=== PATIENT | female | born 1950 | race Caucasian/White ===

== ENCOUNTER → 2020-07-05 | Outpatient (REF) | payer MEDICARE | LOC: M LAB REF 17:06 | PROVIDERS: ATTEND Physician Assistant | DX: L28.1 Prurigo nodularis (principal); L28.0 Lichen simplex chronicus | CPT/HCPCS: 11103; 11104; 11105; 88305; G0463 ==

== ENCOUNTER → 2020-09-18 | Outpatient (REF) | payer MEDICARE | LOC: M LAB REF 17:20 | PROVIDERS: ATTEND Physician Assistant | DX: L28.1 Prurigo nodularis (principal) | CPT/HCPCS: 17000; 17003; 88300; G0463 ==